=== PATIENT | male | born 1965 | race Caucasian/White ===

== ENCOUNTER 2020-07-21 17:24 | Emergency (ER) | payer MEDICARE, MEDICAID, SELFPAY ==
[2020-07-21 17:25] VITALS: BMI 19.6
[2020-07-21] MEDS: amiodarone 50 mg/mL SDV 3 mL 300 MG IVP (17:30)
[2020-07-21] MEDS: EPINEPHrine 0.1 mg/mL SYR 10 mL 1 MG IVP ×4 (17:31→17:44)
[2020-07-21] MEDS: sodium bicarbonate 8.4% 1 mEq/mL 50mL Syr 25 MEQ IVP (17:36)
[2020-07-21] MEDS: calcium gluconate 0.1 gm/mL 10% SDV 10mL 1 GM IVP (17:38)
--- NOTE | 2020-07-21 17:56 | PC.NURSE ---
pt was intubated with a 8 ET and 22 at lip.
--- NOTE | 2020-07-21 17:58 | W.ED.GENADLT ---
HPI - General Adult General: Chief complaint: General Medical Stated complaint: CPR IN PROGRESS Time Seen by Provider: 07/21/20 17:58 History of Present Illness: HPI narrative: Arrives with CPR in progress via EMS. He has been down for 30 minutes prior 20 to 30 minutes prior to arrival that he is had multiple shocks epi's delivered prior to arrival he has an igel in place. See notes below Review of Systems General: Reports: ROS unobtainable due to endotracheal tube Procedures Intubation Time out performed: No sedative: Etomidate paralytic: Succinylcholine Laryngoscope: fiber optic video scope Assist Device Used: fiber optic device ET Tube Size: 8 ET Tube Uncuffed: No Tube Secured Depth (cm): 21 Tube Secured Location: teeth Tube Placement Confirmation: visualized tube passing through cords, equal breath sounds bilaterally and no breath sounds over epigastrium Patient Tolerated Procedure: no complications Intubation Complications: none MDM - General Adult MDM Narrative: Medical decision making narrative: CPR in progress on arrival. Patient was intubated immediately and CPR was continued after several rounds of epi and several shocks patient was remained in PEA no cardiac motion noted on ultrasound. Discussed with the family and ultimately efforts were ceased. Patient had a downtime of over an hour by the time efforts were ceased and had not responded to any ACLS protocols. Time of 1751. See code sheet for more details on his treatment. Critical Care Time Critical Care Time: Critical Care Time: Yes Total Critical Care Time: 30 Attestation: This case had a high probability of a clinically significant, sudden, or life threatening deterioration of this patient's condition which required my full and direct attention, intervention and personal management. Discharge Plan Discharge Patient Disposition: Clinical Impression: Myocardial infarction Interventions: ED Discharge Assessment Last Done: 07/21/20 19:57 ED Charges Last Done: 07/21/20 18:20 Discharge Date/Time: 07/21/20 19:58 Probable Cause of Probable cause of : Cardiac arrest Coding Level of Care Code ED Extruder Tender for Jessica Chambers
--- NOTE | 2020-07-21 18:00 | PC.NURSE ---
Walker Galaviz called and he released the body at this time.
--- NOTE | 2020-07-21 18:00 | PC.NURSE ---
Pt arrived to ED at 1724 with CPR in progress. Per EMS, they administered 6 rounds of epinephrine, 300mg Amiodarone, 2mg Narcan. Pt was also shocked 6 times at 200J, 300J, and 360J for persistent V-fib. Pt had Igel in place upon arrival with right tibial IO in place with IVF infusing at open rate. CPR was continued upon pt arrival, pt intubated at [address] Farrell, RT at bedside. 2-16G IVs established upon arrival to right upper arm and right forearm. Approx 3ml of thick, dark blood obtained from right upper arm IV. Unable to obtain blood from right forearm. Pt was intubated with 8.0 tube. See CPR flow sheet for times of medications and shocks. KRISSY called at 1751.
== END 2020-07-21 19:58 | disposition expired ==
PROVIDERS: Emergency Provider Family Medicine
DX: I21.9 Acute myocardial infarction, unspecified (principal)
CPT/HCPCS: 12345; 31500; 96374; 96375; 99282; 99285; J0171; J0282; J0610